=== PATIENT | female | born 1985 | race Caucasian/White ===

== ENCOUNTER 2016-07-13 21:43 | Observation (INO) | payer OTHER ==
[~2016-07-13 21:43] MED LIST: IV FLUID CONTINUATION 800 ML IV ONE; LACTATED RINGERS 1,000 ML IV ONE
[2016-07-13] MEDS ORDERED: HYDROmorphone 1 MG/ML 1 ML SYRINGE IVP STA (22:03)
[2016-07-13] MEDS ORDERED: diphenhydrAMINE 50 MG/ML 1 ML VIAL IVP STA (22:03)
[2016-07-13] MEDS ORDERED: METOCLOPRAMIDE 5 MG/ML 2 ML VIAL IVP STA (22:03)
[2016-07-13] MEDS ORDERED: SODIUM CHLORIDE 0.9% 1,000 ML IV ONE (22:06)
--- NOTE | 2016-07-13 22:14 | ED ---
Abdominal Pain HPI - General Chief Complaint: Abdominal Pain Stated Complaint: ectopic Time Seen by Provider: 07/13/16 21:45 Source: patient, RN notes reviewed, old records reviewed Mode of arrival: EMS Limitations: no limitations - History of Present Illness Initial Comments: Is a 31-year-old female transferring from [facility] presenting to emergency Department with significant left lower quadrant, pain for the past 2 days. It [facility] they did transvaginal ultrasound and lab work. Evidence of a ectopic measuring 5 x 4 cm echogenic area in the left ovary. She reports she's had multiple episodes of vomiting today. Last time she ate was at 11 AM. Patient worse multiple episodes of vomiting and significant tenderness and left lower quadrant suprapubic region. 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 Patient reports her last [facility]. Was June 03. She states that this is her first . She reports that she thought that she could never be because her grandmother had been putting control pills in her food since she was very young.Patient denies any recent fever, chills, shortness of breath, chest pain, back pain, numbness or tingling, dysuria or hematuria, constipation or diarrhea, headaches or visual changes, or any other current symptoms. - Related Data Home Medications Medication Instructions Recorded Confirmed No Known Home Medications [No 04/20/15 07/13/16 Known Home Medications] Allergies Allergy/AdvReac Type Severity Reaction Status Date / Time Penicillins Allergy Unknown Verified 07/13/16 22:25 Review of Systems ROS Statement: Those systems with pertinent positive or pertinent negative responses have been documented in the HPI. ROS Other: All systems not noted in ROS Statement are negative. Past Medical History Past Medical History: No Reported History History of Any Multi-Drug Resistant Organisms: None Reported Additional Past Surgical History / Comment(s): cyst removed form neck Past Psychological History: No Psychological Hx Reported Smoking Status: Current every day smoker Past Alcohol Use History: None Reported Past Drug Use History: None Reported, Marijuana General Exam - General Exam Comments Initial Comments: Well-appearing 31-year-old female. Limitations: no limitations General appearance: alert, in no apparent distress Head exam: Present: atraumatic, normocephalic, normal inspection Eye exam: Present: normal appearance, PERRL, EOMI. Absent: scleral icterus, conjunctival injection, periorbital swelling ENT exam: Present: normal exam, normal oropharynx, mucous membranes moist Neck exam: Present: normal inspection. Absent: tenderness, meningismus, lymphadenopathy Respiratory exam: Present: normal lung sounds bilaterally. Absent: respiratory distress, wheezes, rales, rhonchi, stridor Cardiovascular Exam: Present: regular rate, normal rhythm, normal heart sounds. Absent: systolic murmur, diastolic murmur, rubs, gallop, clicks GI/Abdominal exam: Present: soft, tenderness (significant LLQ tenderness ), normal bowel sounds. Absent: distended, guarding, rebound, rigid Extremities exam: Present: normal inspection, full ROM, normal capillary refill. Absent: tenderness, pedal edema, joint swelling, calf tenderness Back exam: Present: normal inspection, full ROM Neurological exam: Present: alert, oriented X3, CN II-XII intact Psychiatric exam: Present: normal affect, normal mood Skin exam: Present: warm, dry, intact, normal color. Absent: rash Course Vital Signs 07/13/16 07/13/16 07/13/16 21:52 22:43 23:27 Temperature 99.3 F Pulse Rate 56 L 58 L 58 L Respiratory 18 20 20 Rate Blood Pressure 110/66 105/52 99/57 O2 Sat by Pulse 98 100 Oximetry - Reevaluation(s) Reevaluation #1: 07/13/16 22:[address] mccollum was notified. Patient will be taken to surgery. Patient remained nothing by mouth Medical Decision Making - Medical Decision Making This is a 31-year-old female presenting to the emergency department with 2 days of abdominal pain. She's also had some irregular vaginal bleeding which she states was dark and spotting. She said this happened a few days ago she was her period. She reports that she's had significant nausea or vomiting. Denies any dysuria. Transvaginal ultrasound shows that the uterus is empty. There is a complex area in the left adnexal region which raises possibility of ectopic . Free fluid is present. I would also consider PID or endometriosis. This is read by Dr. Bell. He does measuring 5 by 4 cm echogenic area adjacent to the left ovary. The right ovary is not well seen. Arterial wave form and left ovary in color Doppler images. Patient lab work was reviewed from [facility]. She does have an elevated WBC of 15.5, hemoglobin is 13.0, sodium 136, potassium 3.8, chloride 109, CO2 23, BUN 8.0, creatinine 6.0. HCG serum quantitative was 2742. Patient is evaluated by Dr. Schmidt. She'll be taken to surgery. - Lab Data Result diagrams: 07/13/16 22:45 Lab Results 07/13/16 Range/Units 22:45 WBC 15.3 H (3.8-10.6) k/uL RBC 4.00 (3.80-5.40) m/uL Hgb 12.6 (11.4-16.0) gm/dL Hct 37.5 (34.0-46.0) % MCV 93.7 (80.0-100.0) fL MCH 31.4 (25.0-35.0) pg MCHC 33.6 (31.0-37.0) g/dL RDW 12.9 (11.5-15.5) % Plt Count 303 (150-450) k/uL Neutrophils % 76 % Lymphocytes % 20 % Monocytes % 3 % Eosinophils % 1 % Basophils % 0 % Neutrophils # 11.6 H (1.3-7.7) k/uL Lymphocytes # 3.0 (1.0-4.8) k/uL Monocytes # 0.4 (0-1.0) k/uL Eosinophils # 0.1 (0-0.7) k/uL Basophils # 0.1 (0-0.2) k/uL Disposition Clinical Impression: Ectopic Disposition: ADMITTED IP TO THIS [facility] Condition: Stable Time of Disposition: 22:20
[2016-07-13] MEDS ORDERED: NALOXONE 0.4 MG/ML 1 ML VIAL IV PRN (22:58)
[2016-07-13 23:05] LABS: Basophils # (A) 0.1 k/uL (0-0.2); Basophils % (A) 0 %; CHCM 33.2; Eosinophils # (A) 0.1 k/uL (0-0.7); Eosinophils % (A) 1 %; HCT 37.5 % (34.0-46.0); HDW 2.21; HGB 12.6 gm/dL (11.4-16.0); Luc # (Auto) 0.11; Luc % (Auto) 1; Lymphocytes % (A) 20 %; MCH 31.4 pg (25.0-35.0); MCHC 33.6 g/dL (31.0-37.0); MCV 93.7 fL (80.0-100.0); Mean Platelet Volume 7.1; Monocytes # (A) 0.4 k/uL (0-1.0); Monocytes % (A) 3 %; Neutrophils # (A) 11.6 k/uL (1.3-7.7); Neutrophils % (A) 76 %; RDW 12.9 % (11.5-15.5); WBC 15.3 k/uL (3.8-10.6); WBC (Perox) 15.39
[2016-07-13] MEDS ORDERED: NEOSTIGMINE 1 MG/ML 10 ML VIAL ONE (23:37)
[2016-07-13] MEDS ORDERED: ONDANSETRON 4 MG/2 ML VIAL ONE (23:37)
[2016-07-13] MEDS ORDERED: SUCCINYLCHOLINE CHLORIDE 100 MG/5 ML SYR IV ONE (23:37)
[2016-07-13] MEDS ORDERED: KETOROLAC 30 MG/ML 1 ML VIAL ONE (23:37)
[2016-07-13] MEDS ORDERED: ROCURONIUM BROMIDE 10 MG/ML 10 ML VIAL IV ONE (23:37)
[2016-07-13] MEDS ORDERED: fentaNYL (PF) 50 MCG/ML 2 ML AMP ONE (23:37)
[2016-07-13] MEDS ORDERED: LIDOCAINE 1% INJ 10MG/ML (20 ML MDV) ONE (23:37)
[2016-07-13] MEDS ORDERED: DEXAMETHASONE SOD PHOS (MDV) 100 MG/10 ML VIAL ONE ×2 (23:37)
[2016-07-13] MEDS ORDERED: PROPOFOL 10 MG/ML 20 ML VIAL IV ONE (23:37)
[2016-07-13] MEDS ORDERED: MIDAZOLAM 2 MG/2 ML VIAL ONE (23:37)
[2016-07-13] MEDS ORDERED: GLYCOPYRROLATE 0.2 MG/ML 2 ML VIAL ONE (23:37)
--- NOTE | 2016-07-13 23:44 | P.HPOB ---
History of Present Illness H&P Date: 07/13/16 Chief Complaint: Exquisite left lower quadrant pain, nausea and vomiting. This is a 31-year-old white female 1 LMP 06/03/2016 at 7-5/7 weeks' gestation. Patient presents as a transfer from another local hospital with a positive beta and a 4 x 5 cm mass in the left lower quadrant. Beta level is 2742. Ultrasound reveals an empty uterine cavity, a small amount of fluid in the cul-de-sac, normal-appearing right ovary, left ovary with normal measurements but with a 4.5 cm complex heterogenous mass. No obvious fetus and no cardiac activity. Patient states she has had abdominal pain for approximately 2 days. It comes in waves, is 10 out of 10 and accompanied by sweats nausea and vomiting. It has been intermittent for 2 days. She denies vaginal bleeding, odor or discharge or other issues. She is using nothing for contraception. 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 She has a history of gonorrhea treated 7 years ago. She is currently sexually active and using nothing for contraception. She and her present partner are monogamous and engaged. Past medical history significant for bipolar sorter, on no meds. Past surgical history benign cyst removed of the neck at age 13. Social history patient is engaged to her kelly Rodriguez who is present and at the bedside. 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 She denies any intravenous drug use. Family history significant for her father age 66 having diabetes and thyroid disease, mother age 50 has COPD and bipolar disorder. Current medications none. ALLERGIES include penicillin to which reports a childhood reaction, although she states she has taken Keflex in the past with no issue. On exam this is a pleasant white female, 5 foot 7 inches, 165 pounds, patient is afebrile, blood pressure 116/65, pulse 82, temperature 97.0, respirations 18 , 99% O2 saturation. Chest is clear in all hardy. Cardiac exam reveals regular rate and rhythm. Breast exam is deferred. Abdomen is soft, tender across the lower aspect, right lower quadrant 8 out of 10, midline 8 out of 10, left lower quadrant 10 out of 10 with rebound and guarding. Extremities are negative for edema. Good peripheral pulses are noted. Labs include beta of 2742, hemoglobin 13.0, remaining labs essentially within normal limits with slightly elevated white count of 15.4. Ultrasonic findings as noted above. Impression: 5 x 4 cm left ectopic , hemodynamically stable but very tender. Blood type pending at time of this dictation. 16 year pack year history of tobacco and marijuana use noted as well. Plan: I discussed with the patient the option of methotrexate which I do not believe is in her best interest secondary to the exquisite pain and 5 cm cyst. We discussed minilaparotomy, left salpingotomy, left salpingectomy, possible left salpingo-oophorectomy. We discussed the risks of bleeding, infection, damage to surrounding organs including the bladder, bowel, ureters, blood vessels. We discussed risks of anesthesia, aspiration, nerve damage or even . Questions a been answered and I believe the patient and her kelly Rodriguez understand our discussion with no further reservation. We will proceed with surgery at this time, anesthesia present and aware. Review of Systems As noted in HPI Past Medical History Past Medical History: No Reported History Additional Past Medical History / Comment(s): Bipolar disorder, on no meds History of Any Multi-Drug Resistant Organisms: None Reported Additional Past Surgical History / Comment(s): cyst removed form neck Past Psychological History: No Psychological Hx Reported, Bipolar Smoking Status: Current every day smoker Past Alcohol Use History: None Reported Additional Past Alcohol Use History / Comment(s): No alcohol consumption for 2 years Past Drug Use History: None Reported, Marijuana Additional Drug Use History / Comment(s): Marijuana daily Medications and Allergies Home Medications Medication Instructions Recorded Confirmed Type No Known Home Medications [No 04/20/15 07/13/16 History Known Home Medications] Allergies Allergy/AdvReac Type Severity Reaction Status Date / Time Penicillins Allergy Unknown Verified 07/13/16 22:25 Exam - Vital Signs Vital signs: Vital Signs Temp Pulse Resp BP Pulse Ox 07/13/16 23:27 58 L 20 99/57 100 07/13/16 22:43 58 L 20 105/52 07/13/16 21:52 99.3 F 56 L 18 110/66 98 Intake and Output 07/13/16 07/13/16 07/14/16 14:59 22:59 06:59 Other: Weight 72.575 kg Patient Weight 07/14/16 06:59 Weight 72.575 kg See my throat dictation under HPI please Results Result Diagrams: 07/13/16 22:45 Abnormal Lab Results - Last 24 Hours (Table) 07/13/16 Range/Units 22:45 WBC 15.3 H (3.8-10.6) k/uL Neutrophils # 11.6 H (1.3-7.7) k/uL Assessment and Plan Plan: See dictation. We will proceed with mini laparotomy, left salpingostomy, possible left salpingectomy, possible left salpingo-oophorectomy. All risks and benefits of our plan have been discussed in thorough detail. Time with Patient: Greater than 30
[2016-07-13] MEDS ORDERED: SODIUM CHLORIDE 0.9% 100 ML with ceFAZolin 2,000 MG IV ONE ×2 (23:53)
[2016-07-14] MEDS ORDERED: CELLULOSE,OXIDIZED 1 EACH EACH MISCELLANE ONE (00:06)
[2016-07-14] MEDS ORDERED: METOCLOPRAMIDE 5 MG/ML 2 ML VIAL IVP PRN (00:44)
[2016-07-14] MEDS ORDERED: IBUPROFEN 600 MG TAB PO PRN (00:44)
[2016-07-14] MEDS ORDERED: Acetaminophen-Codeine 300-30mg TAB PO PRN (00:44)
[2016-07-14] MEDS ORDERED: KETOROLAC 30 MG/ML 1 ML VIAL IVP PRN (00:44)
[2016-07-14] MEDS ORDERED: diphenhydrAMINE 50 MG/ML 1 ML VIAL IVP PRN (00:44)
[2016-07-14] MEDS ORDERED: ONDANSETRON 4 MG/2 ML VIAL IVP PRN (00:44)
--- NOTE | 2016-07-14 00:44 | P.OP ---
Date of Procedure: 07/14/16 Preoperative Diagnosis: Left ectopic Postoperative Diagnosis: Ruptured left ectopic , isthmic portion of tube, fibroid uterus, adhesions right adnexa Procedure(s) Performed: Minilaparotomy, left salpingectomy, adhesiolysis right adnexa, copious irrigation Implants: Anesthesia: GETA Surgeon: Christiane Schmidt Paying Teller #1: Stated None Estimated Blood Loss (ml): 200 IV fluids (ml): 800 Urine output (ml): 100 Pathology: other (Left fallopian tube and ectopic) Condition: stable Disposition: PACU Indications for Procedure: Operative Findings: Description of Procedure: Patient is brought to the operating suite where a general anesthetic is administered. She's placed in the dorsal supine position. The abdomen is prepped and draped in the usual sterile fashion. Blood type A+. He appropriate timeout was performed to assure proper patient and procedural identification. 2 g of Ancef are given. A low transverse skin incision is made in this is carried down through the subcutaneous tissue to the fascia. Fascia is isolated, scored and extended bilaterally with curved Perez scissors. Peritoneum is next identified and incised. Upon entering the peritoneal cavity, hemoperitoneum was encountered. Suction with guard is used to remove the blood from the pelvis carefully. The abdomen is packed with sterile sponges after the placement of an O'Emir-O'Salmeron retractor. The left fallopian tube is brought into the incision with Jayla clamps. There is a ruptured ectopic noted in the isthmic portion. The tube appears very dysmorphic, and therefore the decision to proceed with salpingectomy is made. Electrocautery is used through the mesal salpinx to the base of the tube past the area of ectopic. When the tube is mobilized, it is clamped with a Anyi clamp across the base and across the blood supply. The tube is removed with Perez scissors. The base is tied with a Amada stitch of 0 Vicryl, flashed, retied for excellent reapproximation and hemostasis. The ovary appears within normal limits with light electrocautery. When this is completed, ovary on the right side along with tube is inspected. There are filmy adhesions noted, and these are carefully taken down with electrocautery. The uterus is noted to contain small uterine fibroids, otherwise is within normal limits to inspection. At this time the pelvis is very copiously irrigated with warm saline to remove blood and clots. When I'm satisfied that the pelvis is clear, the left ovary is wrapped gently with Interceed and placed back into the pelvis. Instrumentation is removed. The pelvis is clean and dry. The fascia is closed in a running stitch of 0 Vicryl with over ligation in the midline. Subcutaneous tissue is irrigated, clean and dry. It is reapproximated with 3-0 Vicryl in a running fashion. 4-0 undyed Vicryl issues for final skin closure. Steri-Strips and Mastisol are applied to the wound along with a dressing. Curry is noted to be draining clear urine. Patient is brought back to the recovery room in very good condition with stable vital signs including blood pressure 108/56, pulse 62. All sponge needle and enhancement counts are correct. Total fluid replacement 800 mL, urine 100 mL, estimated blood loss 200 mL's.
[2016-07-14] MEDS ORDERED: NALOXONE 0.4 MG/ML 1 ML VIAL IV PRN ×2 (00:47→00:56)
[2016-07-14] MEDS ORDERED: MORPHINE PCA 30 MG/30 ML SYRINGE IV PRN (00:56)
[2016-07-14 02:24] VITALS: BMI 25.0
[2016-07-14] MEDS: SODIUM CHLORIDE 0.9% 1,000 ML IV SCH ×2 (02:47→11:57)
--- NOTE | 2016-07-14 08:59 | P.DS ---
Providers Date of admission: 07/13/16 22:57 Expected date of discharge: 07/14/16 Attending physician: Christiane Schmidt Primary care physician: Stated None Hospital Course: This is a 31-year-old white female 1 para 0 at 7-5/7 weeks' gestation who presented initially to [facility] with an ectopic . She was transferred to our care. Sonographic exam revealed a 5 cm complex left adnexal region, beta hCG 2700, blood type A+. Patient was counseled, decision was made to proceed to operating room. Please see my dictated history and physical for details. Patient underwent a mini laparotomy, left salpingectomy. The right ovary and tube appeared reasonably normal, the uterus had small fibroids, the left ovary appeared normal. The ovary was wrapped in Interceed and placed back gently into the cavity. There was approximately 200 mL of free blood and clot in the pelvis. Please see my dictated operative note for details. This morning the patient is doing well. Her vital signs are stable and she is afebrile. Curry is draining clear urine. She has active bowel sounds. She is requesting discharge home today. Pain seems to be well controlled, patient denies lightheadedness or dizziness. There is no vaginal drainage. The small incision is clean and dry, intact, Steri-Strips applied. The abdomen is only mildly tender with no rebound or guarding. Patient is being discharged home later today in good condition. She will follow -up with me in the office in 2 weeks for incision check. I have reminded her no intercourse, tampons or douching. She will use [id number] ibuprofen products, 200 mg pills, 3 every 6 hours as needed. I've encouraged her to be on a multivitamin daily. No heavy stained, no driving, no intercourse for 2 weeks. I have asked her to call me with any fevers shakes or chills, lightheadedness or dizziness, with any pain not alleviated by [id number] products, or indeed with any concerns. Patient Condition at Discharge: Good Plan - Discharge Summary Discharge Medication List No Known Home Medications [No Known Home Medications] 04/20/15 [History] Follow up Appointment(s)/Referral(s): None,Stated [Primary Care Provider] - 2 Weeks (tony) Patient Instructions/Handouts: Exploratory Laparoscopy (DC), Salpingectomy (DC) Discharge Disposition: HOME SELF-CARE
[2016-07-14 09:15] VITALS: RESP 20
[2016-07-14 12:03] VITALS: BP 98/56; PULSE 62; TEMP 98.2
[2016-07-15] MEDS ORDERED: ACETAMINOPHEN TAB 325 MG TAB PO PRN (00:46)
== END 2016-07-14 15:00 | disposition home or self-care (01) ==
LOC: EC 21:43 → 6PED 22:57
PROVIDERS: ADMIT Obstetrics & Gynecology; ATTEND Obstetrics & Gynecology
DX: O00.10 Tubal pregnancy without intrauterine pregnancy (principal); Z88.0 Allergy status to penicillin; F31.9 Bipolar disorder, unspecified; F17.210 Nicotine dependence, cigarettes, uncomplicated; F12.90 Cannabis use, unspecified, uncomplicated; D25.9 Leiomyoma of uterus, unspecified; Z3A.01 Less than 8 weeks gestation of pregnancy
CPT/HCPCS: 96375 ×4; 96361 ×2; 99285 ×3; 59151; 96376; 96374; 36415; 86900; 86901; 88305; 85025; 86850; G0378 ×2; J2250; J1200; J2710; J2765; J2405; J2001; J3010; J1885 ×2; J1170; J0690; J1100; J0330; J2704; J2270

== ENCOUNTER → 2017-12-23 | Outpatient (CLI) | payer BC ==
--- NOTE | 2017-12-23 09:30 | MR ---
EXAMINATION TYPE: MR pelvis wo/w con DATE OF EXAM: 12/23/2017 COMPARISON: None. HISTORY: Intra-abdominal pelvic swelling, mass, lump, shooting pain CONTRAST: Standard multiplanar, multisequence MRI departmental protocol utilizing 7.5 mL intravenous Gadavist g adolinium contrast. FINDINGS: There is a 6.4 x 7.3 x 7.3 cm mass arising from the region of the right adnexa. This has fr ond-like projections. There is a blood fluid level within this likely from previous hemorrhage. There is a separate from the uterus which has a normal appearance but is displaced slightly towards t he right. The left ovary has a normal appearance. The right ovary appears flattened. There are some n ormal follicles present. The sigmoid colon is displaced around this lesion.. Following intravenous menstruation of gadolinium, there is no significant enhancement. IMPRESSION: LARGE, 7.3 CM MASS ARISING IN THE REGION OF THE RIGHT ADNEXA CONTAINING FROND-LIKE PROJECTIONS WITH A BLOOD FLUID LEVEL. THIS IS SUSPICIOUS FOR NEOPLASM.
== END | disposition home or self-care (01) ==
LOC: RADMRIMAIN 08:08
PROVIDERS: ATTEND Family Medicine
DX: R19.09 Other intra-abdominal and pelvic swelling, mass and lump (principal)
CPT/HCPCS: 72197; A9585

== ENCOUNTER 2018-02-27 09:43 | Emergency (ER) | payer BC ==
[2018-02-27] MEDS ORDERED: SODIUM CHLORIDE 0.9% 1,000 ML IV STA ×2 (10:02→11:59)
[2018-02-27] MEDS ORDERED: SODIUM CHLORIDE 0.9% 500 ML 500 ML IV STA (10:02)
--- NOTE | 2018-02-27 10:26 | ED ---
SOB HPI - General Chief Complaint: Shortness of Breath Stated Complaint: POST OP WINSOME Time Seen by Provider: 02/27/18 10:01 Source: patient, RN notes reviewed, old records reviewed Mode of arrival: wheelchair Limitations: no limitations - History of Present Illness Initial Comments: This is a 32-year-old female the ER for evaluation she presents today for evaluation of shortness of breath weakness abdominal pain. Patient has no other significant medical history, patient did recently go through surgery for ovarian mass, she states since surgery she has been having abdominal pain taking medication which did help with her abdominal pain and over the last 2 days of very lightheaded and nauseous near syncopal at times with increasing abdominal pain and shortness of breath. Patient does feel hot and sweaty but denies any specific or subjective fever. No chest pain MD Complaint: shortness of breath -: days(s) (2) Severity: mild Severity scale (1-10): 2 Consistency: constant Improves With: rest Worsens With: exertion Context: other (Recent surgery) Associated Symptoms: denies other symptoms Treatments Prior to Arrival: none - Related Data Home Medications Medication Instructions Recorded Confirmed HYDROcodone/APAP 5-325MG [[place] 1 tab PO Q6HR PRN 02/27/18 02/27/18 5-325] Ibuprofen [Motrin] 600 mg PO Q8HR PRN 02/27/18 02/27/18 Allergies Allergy/AdvReac Type Severity Reaction Status Date / Time Penicillins Allergy Unknown Verified 02/27/18 10:05 Childhood Review of Systems ROS Statement: Those systems with pertinent positive or pertinent negative responses have been documented in the HPI. ROS Other: All systems not noted in ROS Statement are negative. Past Medical History Past Medical History: No Reported History Additional Past Medical History / Comment(s): Bipolar disorder, on no meds History of Any Multi-Drug Resistant Organisms: None Reported Additional Past Surgical History / Comment(s): cyst removed form neck. MINI LAPAROTOMY, LEFT SALPINGECTOMY Past Anesthesia/Blood Transfusion Reactions: No Reported Reaction Past Psychological History: Bipolar Smoking Status: Former smoker Past Alcohol Use History: Occasional Past Drug Use History: None Reported - Past Family History Mother Additional Family Medical History / Comment(s): bipolar General Exam Limitations: no limitations General appearance: alert, in no apparent distress Head exam: Present: atraumatic, normocephalic, normal inspection Eye exam: Present: normal appearance, PERRL, EOMI. Absent: scleral icterus, conjunctival injection, periorbital swelling ENT exam: Present: normal exam, mucous membranes moist Neck exam: Present: normal inspection. Absent: tenderness, meningismus, lymphadenopathy Respiratory exam: Present: normal lung sounds bilaterally. Absent: respiratory distress, wheezes, rales, rhonchi, stridor Cardiovascular Exam: Present: regular rate, normal rhythm, normal heart sounds. Absent: systolic murmur, diastolic murmur, rubs, gallop, clicks GI/Abdominal exam: Present: soft, tenderness (midline and periumbilical pain), normal bowel sounds. Absent: distended, guarding, rebound, rigid Extremities exam: Present: normal inspection, full ROM, normal capillary refill. Absent: tenderness, pedal edema, joint swelling, calf tenderness Back exam: Present: normal inspection Neurological exam: Present: alert, oriented X3, CN II-XII intact Psychiatric exam: Present: normal affect, normal mood Skin exam: Present: warm, dry, intact, normal color. Absent: rash Course Vital Signs 02/27/18 02/27/18 09:49 12:13 Temperature 98.3 F Pulse Rate 84 66 Respiratory 20 18 Rate Blood Pressure 98/64 112/52 O2 Sat by Pulse 98 100 Oximetry - Reevaluation(s) Reevaluation #1: 02/27/18 10:55 Medical record is reviewed Reevaluation #2: 02/27/18 12:54 Patient states she feels much improved, pain is controlled and she feels like her hydration status is significantly improved Reevaluation #3: 02/27/18 12:55 Patient at length understanding need for follow-up with surgeon who did surgery Medical Decision Making - Medical Decision Making 32 female the ER for evaluation. Patient does have postop abscess first ROM, no fever. Mildly elevated white count at 17. Patient's vital signs otherwise normal and stable, have remained stable throughout ER stay patient denies any significant shortness of breath, denies any acute new symptoms. Pain is well- controlled. Patient does have pain medication at home. We'll put patient on antibiotics to follow-up with gynecological surgery - Lab Data Result diagrams: 02/27/18 10:30 02/27/18 10:30 Lab Results 02/27/18 02/27/18 02/27/18 Range/Units 10:30 10:30 10:30 WBC 17.8 H (3.8-10.6) k/uL RBC 4.50 (3.80-5.40) m/uL Hgb 13.5 (11.4-16.0) gm/dL Hct 40.7 (34.0-46.0) % MCV 90.5 (80.0-100.0) fL MCH 29.9 (25.0-35.0) pg MCHC 33.0 (31.0-37.0) g/dL RDW 13.0 (11.5-15.5) % Plt Count 352 (150-450) k/uL Neutrophils % 85 % Lymphocytes % 9 % Monocytes % 5 % Eosinophils % 1 % Basophils % 0 % Neutrophils # 15.1 H (1.3-7.7) k/uL Lymphocytes # 1.6 (1.0-4.8) k/uL Monocytes # 0.8 (0-1.0) k/uL Eosinophils # 0.1 (0-0.7) k/uL Basophils # 0.0 (0-0.2) k/uL PT (9.0-12.0) sec INR (<1.2) APTT (22.0-30.0) sec Sodium 137 (137-145) mmol/L Potassium 5.4 H (3.5-5.1) mmol/L Chloride 105 (98-107) mmol/L Carbon Dioxide 21 L (22-30) mmol/L Anion Gap 11 mmol/L BUN 15 (7-17) mg/dL Creatinine 0.60 (0.52-1.04) mg/dL Est GFR (CKD-EPI)AfAm >90 (>60 ml/min/1.73 sqM) Est GFR (CKD-EPI)NonAf >90 (>60 ml/min/1.73 sqM) Glucose 89 (74-99) mg/dL Calcium 9.5 (8.4-10.2) mg/dL Magnesium 1.8 (1.6-2.3) mg/dL Total Bilirubin 1.4 H (0.2-1.3) mg/dL AST 40 H (14-36) U/L ALT 37 (9-52) U/L Alkaline Phosphatase 64 (38-126) U/L Total Creatine Kinase 39 (30-135) U/L CK-MB (CK-2) <0.2 (0.0-2.4) ng/mL CK-MB (CK-2) Rel Index Troponin I <0.012 (0.000-0.034) ng/mL NT-Pro-B Natriuret Pep pg/mL Total Protein 7.5 (6.3-8.2) g/dL Albumin 4.1 (3.5-5.0) g/dL Urine Color Urine Appearance (Clear) Urine pH (5.0-8.0) Ur Specific [place] (1.001-1.035) Urine Protein (Negative) Urine Glucose (UA) (Negative) Urine Ketones (Negative) Urine Blood (Negative) Urine Nitrite (Negative) Urine Bilirubin (Negative) Urine Urobilinogen (<2.0) mg/dL Ur Leukocyte Esterase (Negative) Urine RBC (0-5) /hpf Urine WBC (0-5) /hpf Ur Squamous Epith Cells (0-4) /hpf Hyaline Casts (0-2) /lpf Urine Mucus (None) /hpf 02/27/18 02/27/18 02/27/18 Range/Units 10:30 10:30 10:30 WBC (3.8-10.6) k/uL RBC (3.80-5.40) m/uL Hgb (11.4-16.0) gm/dL Hct (34.0-46.0) % MCV (80.0-100.0) fL MCH (25.0-35.0) pg MCHC (31.0-37.0) g/dL RDW (11.5-15.5) % Plt Count (150-450) k/uL Neutrophils % % Lymphocytes % % Monocytes % % Eosinophils % % Basophils % % Neutrophils # (1.3-7.7) k/uL Lymphocytes # (1.0-4.8) k/uL Monocytes # (0-1.0) k/uL Eosinophils # (0-0.7) k/uL Basophils # (0-0.2) k/uL PT 10.7 (9.0-12.0) sec INR 1.0 (<1.2) APTT 24.2 (22.0-30.0) sec Sodium (137-145) mmol/L Potassium (3.5-5.1) mmol/L Chloride (98-107) mmol/L Carbon Dioxide (22-30) mmol/L Anion Gap mmol/L BUN (7-17) mg/dL Creatinine (0.52-1.04) mg/dL Est GFR (CKD-EPI)AfAm (>60 ml/min/1.73 sqM) Est GFR (CKD-EPI)NonAf (>60 ml/min/1.73 sqM) Glucose (74-99) mg/dL Calcium (8.4-10.2) mg/dL Magnesium (1.6-2.3) mg/dL Total Bilirubin (0.2-1.3) mg/dL AST (14-36) U/L ALT (9-52) U/L Alkaline Phosphatase (38-126) U/L Total Creatine Kinase (30-135) U/L CK-MB (CK-2) (0.0-2.4) ng/mL CK-MB (CK-2) Rel Index Troponin I (0.000-0.034) ng/mL NT-Pro-B Natriuret Pep 35 pg/mL Total Protein (6.3-8.2) g/dL Albumin (3.5-5.0) g/dL Urine Color Yellow Urine Appearance Clear (Clear) Urine pH 6.5 (5.0-8.0) Ur Specific [place] 1.022 (1.001-1.035) Urine Protein Trace H (Negative) Urine Glucose (UA) Negative (Negative) Urine Ketones Negative (Negative) Urine Blood Small H (Negative) Urine Nitrite Negative (Negative) Urine Bilirubin Negative (Negative) Urine Urobilinogen <2.0 (<2.0) mg/dL Ur Leukocyte Esterase Trace H (Negative) Urine RBC 2 (0-5) /hpf Urine WBC 3 (0-5) /hpf Ur Squamous Epith Cells 4 (0-4) /hpf Hyaline Casts 1 (0-2) /lpf Urine Mucus Rare H (None) /hpf - EKG Data -: EKG Interpreted by Me (EKG shows sinus rhythm wearing rate of 74, AK 142, QRS 86, QTc 48) - Radiology Data Radiology results: report reviewed (CT abdomen pelvis is positive for seroma versus abscess), image reviewed Disposition Clinical Impression: Post-operative wound abscess Narrative: seroma Disposition: HOME SELF-CARE Condition: Good Instructions: Abscess (ED), Seroma (DC) Is patient prescribed a controlled substance at d/c from ED?: No Referrals: Jayden Briggs DO [Primary Care Provider] - 1-2 days
[2018-02-27 11:20] LABS: Basophils % (A) 0 %; Eosinophils # (A) 0.1 k/uL (0-0.7); Eosinophils % (A) 1 %; HCT 40.7 % (34.0-46.0); HGB 13.5 gm/dL (11.4-16.0); Lymphocytes # (A) 1.6 k/uL (1.0-4.8); Lymphocytes % (A) 9 %; MCH 29.9 pg (25.0-35.0); MCV 90.5 fL (80.0-100.0); Mean Platelet Volume 7.2; Monocytes # (A) 0.8 k/uL (0-1.0); Monocytes % (A) 5 %; Neutrophils # (A) 15.1 k/uL (1.3-7.7); Neutrophils % (A) 85 %; Platelet Count 352 k/uL (150-450); WBC 17.8 k/uL (3.8-10.6)
[2018-02-27 11:22] LABS: Partial Thromboplastin Time 24.2 sec (22.0-30.0); Prothrombin Time 10.7 sec (9.0-12.0)
--- NOTE | 2018-02-27 11:28 | XR ---
EXAMINATION TYPE: XR chest 2V DATE OF EXAM: 02/27/2018 COMPARISON: None HISTORY: 32-year-old female difficulty breathing TECHNIQUE: PA and lateral views FINDINGS: The cardiomediastinal silhouette, aorta, and pulmonary vasculature are within normal limits. Lungs an d pleural spaces are clear. IMPRESSION: No acute cardiopulmonary process.
[2018-02-27 11:32] LABS: ALT 37 U/L (9-52); AST 40 U/L (14-36); Albumin 4.1 g/dL (3.5-5.0); Alkaline Phosphatase 64 U/L (38-126); Anion Gap 11 mmol/L; Blood Urea Nitrogen 15 mg/dL (7-17); Calcium 9.5 mg/dL (8.4-10.2); Carbon Dioxide 21 mmol/L (22-30); Chloride 105 mmol/L (98-107); Glucose 89 mg/dL (74-99); Magnesium 1.8 mg/dL (1.6-2.3); Sodium 137 mmol/L (137-145); Total Bilirubin 1.4 mg/dL (0.2-1.3); Total Protein 7.5 g/dL (6.3-8.2)
[2018-02-27 11:37] LABS: Creatine Kinase 39 U/L (30-135)
[2018-02-27 11:41] LABS: Potassium 5.4 mmol/L (3.5-5.1)
[2018-02-27 11:49] LABS: Creatine Kinase MB <0.2 ng/mL (0.0-2.4); Troponin I <0.012 ng/mL (0.000-0.034)
--- NOTE | 2018-02-27 11:57 | CT ---
CT CHEST FOR PULMONARY EMBOLISM. EXAMINATION TYPE: CT angio chest DATE OF EXAM: 02/27/2018 INDICATION: POST OP WINSOME CT DLP: 1106.9 mGycm, Automated exposure control for dose reduction was used. CONTRAST: Patient injected with 100 ml mL of Isovue 370. COMPARISON: None TECHNIQUE: CT of the chest is performed on a spiral scan at 2 mm thick sections. Study is performed with intravenous contrast timed for evaluation for pulmonary embolism. This will limit additional po rtions of the evaluation. 3-D MIP images reconstructed by the technologist are reviewed on the compu ter in the coronal and sagittal planes. FINDINGS: No persistent filling defects are evident to suggest an acute pulmonary embolism. No mediastinal or hilar adenopathy enlarged by CT criteria is evident. The ascending aorta diameter at the level of the main pulmonary artery is 3.1 cm. The main pulmonary artery diameter at the bifur cation is 2.5 cm. There is minimal compressive atelectasis within the dependent portions of the lung bases. Limited CT section through the upper abdomen are unremarkable. IMPRESSIONS: 1. No acute pulmonary embolism.
--- NOTE | 2018-02-27 12:04 | CT ---
EXAMINATION TYPE: CT abdomen pelvis w con DATE OF EXAM: 02/27/2018 COMPARISON: INDICATION: POST OP WINSOME DLP: 1106.9 mGycm, Automated exposure control for dose reduction was used. CONTRAST: 100 ml mL of Isovue 370. Study performed without Oral Contrast TECHNIQUE: Axial images were obtained from above the diaphragm to the pubic rami in the axial plane a t 5 mm thick sections. Reconstructed images are reviewed on the computer in the coronal plane. FINDINGS: Limited CT sections are obtained the lung bases. The lung bases are clear. CT ABDOMEN: Liver: Normal Spleen: Normal. Splenules are adjacent to the spleen. Pancreas: Normal Adrenal glands: The adrenal glands are normal. Gallbladder: Normal Kidneys: No masses are evident. No hydronephrosis is present. No cysts are present. Delayed images were obtained through the kidneys, which remain unremarkable. Aorta: Normal Inferior vena cava: Normal. CT PELVIS: There are multiple air-fluid levels within the periumbilical region some mild thickening o f the left rectus abdominis muscle is present. Correlate for abscess formation. The subcutaneous johnathan ection is estimated to measure 3.0 x 3.7 cm. Thickening of the rectus abdominis muscle is 1.9 cm vers us 1.1 cm on the more normal-appearing left mid rectus abdominis muscle. Loops of bowel within the abdomen and pelvis are normal. Fecal debris is within the colon. Appendix: Not identified. Inflammatory changes are not identified. Urinary bladder: Partially decompressed limiting its evaluation. Genitourinary structures: Uterus and adnexa appear normal. There is small to moderate fluid within th e pelvis. Osseous structures: No suspicious lytic or sclerotic lesions. IMPRESSIONS: 1. 3.7 x 3.0 cm collection in the periumbilical subcutaneous tissues with scattered air-fluid levels . Postsurgical hematoma versus abscess should be considered. 2. There is thickening of the left rectus abdominis muscle which may be postsurgical in nature. Swell ing may be present. 3. Small to moderate fluid within the pelvis. Hemorrhage is not excluded. This could be old hemorrhag e or fluid from surgery.
[2018-02-27] MEDS ORDERED: MORPHINE SULFATE 4 MG/ML SYRINGE IVP STA (12:05)
[2018-02-27 12:14] VITALS: RESP 18
[2018-02-27 12:45] LABS: Appearance,Urine Clear (Clear); Bilirubin,Urine Negative (Negative); Blood,Urine Small (Negative); Color,Urine Yellow; Glucose,Urine (UA) Negative (Negative); Hyaline Casts,Urine 1 /lpf (0-2); Ketones,Urine Negative (Negative); Leukocyte Esterase,Urine Trace (Negative); Mucus,Urine Rare /hpf; Nitrite,Urine Negative (Negative); PH, Urine 6.5 (5.0-8.0); Protein,Urine Trace (Negative); RBC,Urine 2 /hpf (0-5); Specific Gravity,Urine 1.022 (1.001-1.035); Squamous Epithelial Cell,Urine 4 /hpf (0-4); Urobilinogen,Urine <2.0 mg/dL (<2.0); WBC,Urine 3 /hpf (0-5)
[2018-02-27] MEDS ORDERED: cefTRIAXone 2,000 MG in SODIUM CHLORIDE 0.9% 100 ML IVPB STA (12:57)
[2018-02-27] MEDS ORDERED: SODIUM CHLORIDE 0.9% 1,000 ML IV ONE (13:42)
[2018-02-27 14:59] VITALS: BP 114/65; PULSE 76; TEMP 98.9
== END 2018-02-27 14:58 | disposition home or self-care (01) ==
LOC: EC 09:43
DX: T81.49XA Infection following a procedure, other surgical site, initial encounter (principal); R06.02 Shortness of breath; R53.1 Weakness; R10.9 Unspecified abdominal pain; R42 Dizziness and giddiness; R11.0 Nausea; R55 Syncope and collapse; Z87.891 Personal history of nicotine dependence; Z88.0 Allergy status to penicillin; Z98.890 Other specified postprocedural states
CPT/HCPCS: 36415; 93005; 83880; 80053; 82550; 82553; 83735; 84484; 85025; 85610; 85730; 81001; 87086; 87077; 87186; 71046; 71275; 74177; 99285; 96365; 96375; 96361 ×3; J2270; J0696; Q9967

== ENCOUNTER 2018-03-04 13:32 | Emergency (ER) | payer BC ==
[2018-03-04] MEDS ORDERED: HYDROmorphone 1 MG/ML 1 ML SYRINGE IM STA (14:07)
--- NOTE | 2018-03-04 14:29 | ED ---
Skin/Abscess/FB HPI - General Chief complaint: Skin/Abscess/Foreign Body Stated complaint: Abscess Time Seen by Provider: 03/04/18 13:51 Source: patient, RN notes reviewed Mode of arrival: ambulatory Limitations: no limitations - History of Present Illness Initial comments: 32-year-old female presented emergency department with chief complaint of drainage from her incision site patient states that on 02/22/2018 she had a dermoid cyst removed by his surgeon at [facility]. Patient states that she's had pain ever sent was seen in emergency department 5 days ago and has CT which showed a 3 cm abscess and subcutaneous region. She states the pain and redness have worsened until it opened up this morning and she had a large amount of purulent foul-smelling drainage. Patient initially was placed on Bactrim but was causing GI upset was switched to Keflex and just started her first dose. Patient reports no fever or chills. She states there is pressure in the area she does have an appointment tomorrow with her [facility]. - Related Data Home Medications Medication Instructions Recorded Confirmed Ibuprofen [Motrin] 600 mg PO Q8HR PRN 02/27/18 03/04/18 Cephalexin [Keflex] 500 mg PO QID 03/04/18 03/04/18 Allergies Allergy/AdvReac Type Severity Reaction Status Date / Time Penicillins Allergy Unknown Verified 03/04/18 14:17 Childhood Review of Systems ROS Statement: Those systems with pertinent positive or pertinent negative responses have been documented in the HPI. ROS Other: All systems not noted in ROS Statement are negative. Past Medical History Past Medical History: No Reported History Additional Past Medical History / Comment(s): Bipolar disorder, on no meds History of Any Multi-Drug Resistant Organisms: None Reported Additional Past Surgical History / Comment(s): cyst removed form neck. MINI LAPAROTOMY, LEFT SALPINGECTOMY Past Anesthesia/Blood Transfusion Reactions: No Reported Reaction Past Psychological History: Bipolar Smoking Status: Former smoker Past Alcohol Use History: Occasional Past Drug Use History: None Reported - Past Family History Mother Additional Family Medical History / Comment(s): bipolar General Exam Limitations: no limitations General appearance: alert, in no apparent distress Head exam: Present: atraumatic, normocephalic, normal inspection Respiratory exam: Present: normal lung sounds bilaterally. Absent: respiratory distress, wheezes, rales, rhonchi, stridor Cardiovascular Exam: Present: regular rate, normal rhythm, normal heart sounds. Absent: systolic murmur, diastolic murmur, rubs, gallop, clicks GI/Abdominal exam: Present: soft, tenderness, normal bowel sounds, other ( Periumbilical erythema approximately 6 cm in diameter, open wound purulent drainage noted). Absent: distended, guarding, rebound, rigid Course Vital Signs 03/04/18 13:41 Temperature 99.0 F Pulse Rate 105 H Respiratory 20 Rate Blood Pressure 121/58 O2 Sat by Pulse 100 Oximetry Procedures - Incision & Drainage Consent Obtained: verbal consent Indication: Abdominal abscess Site: abdomen Size (cm): 6 Needle Aspiration Performed?: Yes I&D Drainage Obtained: Pus (Foul-smelling, approx 30 mL) Culture Obtained?: Yes Patient Tolerated Procedure: well, no complications Medical Decision Making - Medical Decision Making 32-year-old female presented for large abdominal abscess that ruptured. Patient had prior CT 5 days ago which showed 3 cm subcutaneous abscess. This did increase in size and had a large amount of purulent drainage. Patient states that she does feel better at this time will follow-up with her surgeon tomorrow at her scheduled appointment will continue antibiotics as directed. Disposition Clinical Impression: Post-operative wound abscess Disposition: HOME SELF-CARE Condition: Stable Instructions: Abscess Incision and Drainage (ED), Abscess (ED) Additional Instructions: Please return to the Emergency Department if symptoms worsen or any other concerns. Is patient prescribed a controlled substance at d/c from ED?: No Referrals: Jayden Briggs DO [Primary Care Provider] - 1-2 days Time of Disposition: 14:57
[2018-03-04 15:09] VITALS: BP 111/50; PULSE 77; RESP 18; TEMP 100.4
== END 2018-03-04 15:20 | disposition home or self-care (01) ==
LOC: EC 13:32
DX: T81.41XA Infection following a procedure, superficial incisional surgical site, initial encounter (principal); L02.211 Cutaneous abscess of abdominal wall; Z88.0 Allergy status to penicillin; Z87.891 Personal history of nicotine dependence
CPT/HCPCS: 87070; 87205; 99283; 10060; 96372; J1170

== ENCOUNTER 2018-04-27 07:42 | Day surgery (SDC) | payer BC ==
[2018-04-23 17:19] VITALS: BMI 28.8
[~2018-04-27 07:42] MED LIST changes: +DEXAMETHASONE SOD PHOSPHATE 10 MG/ML 1 ML VIAL IV ONE; +HEPARIN SODIUM,PORCINE 5,000 UNIT/ML 1 ML VIAL SQ ONE; -IV FLUID CONTINUATION 800 ML IV ONE; -LACTATED RINGERS 1,000 ML IV ONE; +LACTATED RINGERS 1,000 ML IV SCH; +MIDAZOLAM 2 MG/2 ML VIAL IV PRN; +ONDANSETRON 4 MG/2 ML VIAL IVP ONE; +SCOPOLAMINE 1.5MG/72HR PATCH TRANSDERM ONE; +ceFAZolin IN SWFI 2 GM/20 ML SYRINGE IVP ONE
[2018-04-27] MEDS ORDERED: LIDOCAINE 1% 20 ML VIAL (10MG/ML) FOR IV START INTRADERMA ONE (09:11)
[2018-04-27] MEDS ORDERED: fentaNYL (PF) 50 MCG/ML 2 ML AMP ONE (09:24)
[2018-04-27] MEDS ORDERED: HYDROmorphone (PF) 1 MG/ML ONE (09:24)
[2018-04-27] MEDS ORDERED: ROCURONIUM BROMIDE 10 MG/ML 10 ML VIAL IV ONE (09:24)
[2018-04-27] MEDS ORDERED: GLYCOPYRROLATE 0.2 MG/ML 2 ML VIAL ONE (09:24)
[2018-04-27] MEDS ORDERED: LIDOCAINE 1% INJ 10MG/ML (20 ML MDV) ONE (09:24)
[2018-04-27] MEDS ORDERED: diphenhydrAMINE 50 MG/ML 1 ML VIAL ONE (09:24)
[2018-04-27] MEDS ORDERED: NEOSTIGMINE 1 MG/ML 10 ML VIAL ONE (09:24)
[2018-04-27] MEDS ORDERED: SUCCINYLCHOLINE CHLORIDE 100 MG/5 ML SYR IV ONE (09:24)
[2018-04-27] MEDS ORDERED: PROPOFOL 10 MG/ML 20 ML VIAL IV ONE (09:24)
[2018-04-27] MEDS ORDERED: MIDAZOLAM 2 MG/2 ML VIAL ONE (09:24)
[2018-04-27] MEDS ORDERED: LACTATED RINGERS 1,000 ML IV ONE ×2 (09:53→10:13)
[2018-04-27] MEDS ORDERED: BUPIVACAIN-EPI 0.5%-1:200,000 30 ML VIAL SQ ONE (10:02)
--- NOTE | 2018-04-27 10:34 | P.OP ---
Date of Procedure: 04/27/18 Procedure(s) Performed: PREOPERATIVE DIAGNOSIS: Abdominal wall wound infection POSTOPERATIVE DIAGNOSIS: Same, intra-abdominal adhesions PROCEDURE: Diagnostic laparoscopy with lysis of adhesions, open exploration abdominal wound with debridement SURGEON: Arianna EBL: 10 mL ANESTHESIA: Enteral COMPLICATIONS: None OPERATIVE PROCEDURE: Patient placed in the operative table in the supine position. The patient was placed under general anesthesia. The abdomen was prepped and draped in usual sterile fashion. A 5 mm optical trocar was used to enter the peritoneal cavity in the left upper quadrant without difficulty. An additional 5 mm trocar was placed in the lateral midabdomen under direct visualization. The patient had adhesions between the omentum and the abdominal wall at the umbilicus and along the midline. These adhesions were lysed using blunt dissection and sharp dissection. There was no bowel in the vicinity of the umbilicus. Once I was comfortable there was no evidence of enterocutaneous fistula the pneumoperitoneum was evacuated and the trochars removed. The skin was closed at those sites using 4-0 Monocryl sutures. The abdominal wound itself was present just beneath the umbilicus measuring 6 x 6 mm in diameter. An elliptical incision was made encompassing this wound from a site just superior to that inferiorly by about 3-4 cm total. The tract of the wound was partially excised. Cultures were taken of the slightly brownish tinged purulent fluid. Blunt dissection also took place of the wound tract. The wound was noted to track down to the level of the fascia and also slightly superior to the umbilical adhesions to the fascia. No large collections of purulence was seen. There was no foreign bodies or suture material identified. The curet was used to debride the subcutaneous tissues in an excisional manner sharply. The wound was then irrigated with saline. The wound was then packed with 2 inch Caleb gauze. A sterile dressing was applied. DISPOSITION: Stable to recovery room
[2018-04-27] MEDS ORDERED: HYDROcodone/APAP 5-325MG 1 EACH TAB PO PRN (10:35)
[2018-04-27] MEDS ORDERED: NALOXONE 0.4 MG/ML 1 ML VIAL IV PRN (10:35)
[2018-04-27 10:39] VITALS: TEMP 98
[2018-04-27] MEDS: HYDROmorphone 0.5 MG/0.5 ML SYRINGE IVP PRN ×2 (10:56→11:03)
[2018-04-27 12:09] VITALS: RESP 18
[2018-04-27 12:59] VITALS: BP 104/76; PULSE 66
--- NOTE | 2018-05-02 12:56 | CDI ---
Pt Name: Emily Diaz CONFIDENTIAL MR#: [id number] Adm Date: 04/27/2018 7:42:00 AM Printed:05/02/2018 Physician Documentation Request Page 1 of 1 ICD-10-CM Ready Physicians Documentation Request Patient: Emily Diaz EPI: [id number] Account: [id number] Payer: [facility] Facility: [facility] Location: - Admit Date: 04/27/2018 7:42:00 AM Query Send By: Shanaprasanna Rojas Phone #: Ext. Communication Date: 05/02/2018 12:44:44 PM Clarification @@@visittype@@@ By submitting this query, we are merely seeking further clarification of documentation to accurately reflect all conditions that you are monitoring, evaluating, treating or that extend the hospitalization or utilize additional resources of care. Please utilize your independent clinical judgment when addressing the question(s) below. Dear Doctor Kory Keller, The patients Clinical Indicators include: Presented for debridement of postoperative wound infection beneath umbilicus. Documentation Clarification OP: Please document the measurement of the wound post-debridement. size of debrided area 5 x 5 cm PLEASE DOCUMENT ANY ADDITIONAL DIAGNOSES AND/OR SPECIFICITY IN THE PROGRESS NOTES AND/OR DISCHARGE SUMMARY. Agreed & documented Unable to determine/unknown Disagree with the above request Need to discuss MTDD
== END 2018-04-27 13:00 | disposition home health service (06) ==
LOC: OR 07:42
PROVIDERS: ATTEND Surgery
DX: T81.42XA Infection following a procedure, deep incisional surgical site, initial encounter (principal); Z87.891 Personal history of nicotine dependence; Z81.8 Family history of other mental and behavioral disorders; Z82.49 Family history of ischemic heart disease and other diseases of the circulatory system; Z88.0 Allergy status to penicillin; K66.0 Peritoneal adhesions (postprocedural) (postinfection)
CPT/HCPCS: 49329; 11042; 11045; 81025; 88304; J2250; J1200; J1644; J1100; J2710; J2405; J2001; J3010; J1170 ×2; J0330; J2704; J0690